=== PATIENT | female | born 1990 | race African-American/Black ===

== ENCOUNTER 2016-10-14 01:22 | Inpatient (IN) | payer MEDICAID ==
[2016-10-14] VITALS (39 sets, daily range): BP systolic 122–182; RESP 16–35; TEMP 97.4–98.7; Ht 165.1 cm; Wt 153.6 kg
[~2016-10-14] VITALS: Ht 165.1 cm; Wt 153.6 kg
[2016-10-14] MEDS ORDERED: DUONEB INH ONE ×3 (02:32→02:33)
[2016-10-14] MEDS: DUONEB INH SCH ×5 (05:08→22:33)
[2016-10-14] MEDS ORDERED: Flu Vaccine Quadrivalent 60 MCG/0.5 ML IM.VACC ONE (05:25)
[2016-10-14] MEDS ORDERED: KCL CR 10 MEQ CAP PO ONE ×2 (08:30→18:40)
[2016-10-14] MEDS ORDERED: Furosemide 100 MG/10 ML VIAL IV ONE (08:30)
[2016-10-14] MEDS: NEBIVOLOL 2.5 MG TAB PO SCH (10:06)
[2016-10-14] MEDS: CEFTRIAXONE 1 GM in SODIUM CHLORIDE 0.9% 50 ML IV SCH (10:19)
[2016-10-14] MEDS: METHYLPRED SOD SUCC 125 MG/2 ML VIAL IV SCH ×3 (10:19→20:04)
[2016-10-14] MEDS ORDERED: Furosemide 40 MG TAB PO ONE (18:40)
[2016-10-14] MEDS: MONTELUKAST 10 MG TAB PO SCH (20:04)
[2016-10-14] MEDS: ONDANSETRON 4 MG VIAL IV PUSH PRN (20:57)
[2016-10-14] MEDS: ACETAMINOPHEN 325 MG TAB PO PRN (21:04)
[2016-10-15] VITALS (21 sets, daily range): BP systolic 100–156; RESP 18–36; TEMP 97.3–98.8
[2016-10-15] MEDS: DUONEB INH SCH ×6 (02:15→22:20)
[2016-10-15] MEDS ORDERED: Furosemide 40 MG/4 ML VIAL IV ONE (08:40)
[2016-10-15] MEDS: NEBIVOLOL 2.5 MG TAB PO SCH ×2 (09:18→10:04)
[2016-10-15] MEDS: CEFTRIAXONE 1 GM in SODIUM CHLORIDE 0.9% 50 ML IV SCH (09:18)
[2016-10-15] MEDS: METHYLPRED SOD SUCC 125 MG/2 ML VIAL IV SCH ×2 (09:34→20:34)
[2016-10-15] MEDS: ACETAMINOPHEN 325 MG TAB PO PRN (16:49)
[2016-10-15] MEDS: MONTELUKAST 10 MG TAB PO SCH (20:34)
[2016-10-16] VITALS (10 sets, daily range): BP systolic 116–147; RESP 18–25; TEMP 97.3–98.3
[2016-10-16] MEDS: DUONEB INH SCH ×4 (02:34→14:26)
[2016-10-16] MEDS ORDERED: SALINE FLUSH 10 ML FLUSH PRN (07:55)
[2016-10-16] MEDS: NEBIVOLOL 2.5 MG TAB PO SCH (09:40)
[2016-10-16] MEDS: CEFTRIAXONE 1 GM in SODIUM CHLORIDE 0.9% 50 ML IV SCH (09:40)
[2016-10-16] MEDS: METHYLPRED SOD SUCC 125 MG/2 ML VIAL IV SCH ×2 (09:41→20:29)
[2016-10-16] MEDS: SALINE FLUSH 10 ML FLUSH SCH ×2 (09:41→20:29)
[2016-10-16] MEDS: ACETAMINOPHEN 325 MG TAB PO PRN (16:28)
[2016-10-16] MEDS ORDERED: MAG HYDROX 30 ML UDC PO PRN (17:30)
[2016-10-16] MEDS: NEB-BROVANA 15 MCG/2 ML INH SCH (17:51)
[2016-10-16] MEDS: NEB-XOPENEX 0.63 MG/3 ML INH SCH ×2 (17:51→23:48)
[2016-10-16] MEDS: NEB-BUDESONIDE 0.5 MG INH SCH (17:51)
[2016-10-16] MEDS: MONTELUKAST 10 MG TAB PO SCH (20:28)
[2016-10-16] MEDS: THEOPHYLLINE SR 200 MG CAP PO SCH (20:28)
[2016-10-17] VITALS (9 sets, daily range): BP systolic 122–142; RESP 20–30; TEMP 97.4–98.2
[2016-10-17] MEDS: NEB-XOPENEX 0.63 MG/3 ML INH SCH ×6 (03:22→22:17)
[2016-10-17] MEDS: SODIUM CHLORIDE 0.9% FLUSH BAG 500 ML IV SCH (06:43)
[2016-10-17] MEDS: NEB-BUDESONIDE 0.5 MG INH SCH ×2 (07:28→18:21)
[2016-10-17] MEDS: NEB-BROVANA 15 MCG/2 ML INH SCH ×2 (07:28→18:21)
[2016-10-17] MEDS: METHYLPRED SOD SUCC 125 MG/2 ML VIAL IV SCH ×2 (09:13→22:58)
[2016-10-17] MEDS: THEOPHYLLINE SR 200 MG CAP PO SCH ×2 (09:13→22:54)
[2016-10-17] MEDS: SALINE FLUSH 10 ML FLUSH SCH ×2 (09:13→20:00)
[2016-10-17] MEDS: NEBIVOLOL 2.5 MG TAB PO SCH (09:13)
[2016-10-17] MEDS: CEFTRIAXONE 1 GM in SODIUM CHLORIDE 0.9% 50 ML IV SCH (09:14)
[2016-10-17] MEDS ORDERED: ALU/MAG/SIM 30 ML UDC PO PRN (09:35)
[2016-10-17] MEDS: DUONEB INH SCH ×2 (10:30→10:59)
[2016-10-17] MEDS: GUAIFENESIN ER 600 MG TABCR PO SCH ×2 (10:55→22:54)
[2016-10-17] MEDS: MONTELUKAST 10 MG TAB PO SCH (22:53)
[2016-10-18] VITALS (8 sets, daily range): BP systolic 140–156; RESP 18–26; TEMP 97.2–98.4
[2016-10-18] MEDS: ACETAMINOPHEN 325 MG TAB PO PRN (01:09)
[2016-10-18] MEDS: NEB-XOPENEX 0.63 MG/3 ML INH SCH ×6 (02:54→22:20)
[2016-10-18] MEDS: SODIUM CHLORIDE 0.9% FLUSH BAG 500 ML IV SCH (06:08)
[2016-10-18] MEDS: MODAFINIL 100 MG TAB PO SCH ×2 (06:09→12:18)
[2016-10-18] MEDS: NEB-BROVANA 15 MCG/2 ML INH SCH ×2 (07:15→19:31)
[2016-10-18] MEDS: NEB-BUDESONIDE 0.5 MG INH SCH ×2 (07:15→19:31)
[2016-10-18] MEDS: SALINE FLUSH 10 ML FLUSH SCH ×2 (08:17→20:48)
[2016-10-18] MEDS: CEFTRIAXONE 1 GM in SODIUM CHLORIDE 0.9% 50 ML IV SCH (08:17)
[2016-10-18] MEDS: METHYLPRED SOD SUCC 125 MG/2 ML VIAL IV SCH ×2 (08:17→20:46)
[2016-10-18] MEDS: NEBIVOLOL 2.5 MG TAB PO SCH (08:18)
[2016-10-18] MEDS: THEOPHYLLINE SR 200 MG CAP PO SCH ×2 (08:18→20:44)
[2016-10-18] MEDS: GUAIFENESIN ER 600 MG TABCR PO SCH ×2 (08:18→20:44)
[2016-10-18] MEDS: ALPRAZOLAM 0.25 MG TAB PO PRN (20:44)
[2016-10-18] MEDS: MONTELUKAST 10 MG TAB PO SCH (20:44)
[2016-10-18] MEDS: ONDANSETRON 4 MG VIAL IV PUSH PRN (20:46)
[2016-10-19] VITALS (8 sets, daily range): BP systolic 128–160; RESP 20–26; TEMP 97.8–98.6
[2016-10-19] MEDS: NEB-XOPENEX 0.63 MG/3 ML INH SCH ×6 (02:35→22:26)
[2016-10-19] MEDS: MODAFINIL 100 MG TAB PO SCH ×2 (04:56→12:25)
[2016-10-19] MEDS: SODIUM CHLORIDE 0.9% FLUSH BAG 500 ML IV SCH (04:56)
[2016-10-19] MEDS: ALPRAZOLAM 0.25 MG TAB PO PRN ×2 (06:55→19:35)
[2016-10-19] MEDS: ACETAMINOPHEN 325 MG TAB PO PRN (06:56)
[2016-10-19] MEDS: NEB-BROVANA 15 MCG/2 ML INH SCH ×2 (07:20→19:15)
[2016-10-19] MEDS: NEB-BUDESONIDE 0.5 MG INH SCH ×2 (07:20→19:15)
[2016-10-19] MEDS: CEFTRIAXONE 1 GM in SODIUM CHLORIDE 0.9% 50 ML IV SCH (09:14)
[2016-10-19] MEDS: PREDNISONE 50 MG TAB PO SCH (09:15)
[2016-10-19] MEDS: NEBIVOLOL 2.5 MG TAB PO SCH (09:15)
[2016-10-19] MEDS: GUAIFENESIN ER 600 MG TABCR PO SCH ×2 (09:15→19:35)
[2016-10-19] MEDS: THEOPHYLLINE SR 200 MG CAP PO SCH ×2 (09:15→19:35)
[2016-10-19] MEDS: SALINE FLUSH 10 ML FLUSH SCH ×2 (09:15→19:36)
[2016-10-19] MEDS: ONDANSETRON 4 MG VIAL IV PUSH PRN (15:10)
[2016-10-19] MEDS: MONTELUKAST 10 MG TAB PO SCH (19:35)
[2016-10-20 00:08] VITALS: RESP 22
[2016-10-20] MEDS: NEB-XOPENEX 0.63 MG/3 ML INH SCH ×3 (02:42→11:00)
[2016-10-20] MEDS: SODIUM CHLORIDE 0.9% FLUSH BAG 500 ML IV SCH (03:34)
[2016-10-20 04:08] VITALS: BP_SYST 112; RESP 20; TEMP 98
[2016-10-20] MEDS: MODAFINIL 100 MG TAB PO SCH ×2 (06:00→12:00)
[2016-10-20 07:11] VITALS: BP_SYST 129; RESP 20; TEMP 97.3
[2016-10-20] MEDS: NEB-BROVANA 15 MCG/2 ML INH SCH (07:22)
[2016-10-20] MEDS: NEB-BUDESONIDE 0.5 MG INH SCH (07:22)
[2016-10-20] MEDS: ACETAMINOPHEN 325 MG TAB PO PRN (07:48)
[2016-10-20] MEDS: GUAIFENESIN ER 600 MG TABCR PO SCH (07:52)
[2016-10-20] MEDS: THEOPHYLLINE SR 200 MG CAP PO SCH (07:52)
[2016-10-20] MEDS: NEBIVOLOL 2.5 MG TAB PO SCH (07:52)
[2016-10-20] MEDS: PREDNISONE 50 MG TAB PO SCH (07:52)
[2016-10-20] MEDS: SALINE FLUSH 10 ML FLUSH SCH (07:53)
[2016-10-20] MEDS: CEFTRIAXONE 1 GM in SODIUM CHLORIDE 0.9% 50 ML IV SCH (07:58)
[2016-10-20 10:54] VITALS: BP_SYST 140; RESP 20; TEMP 97.8
[2016-10-20 10:56] VITALS: BP_SYST 140; RESP 20; TEMP 97.8
[2016-10-20 11:04] VITALS: BP_SYST 140; RESP 20; TEMP 97.8
== END 2016-10-20 14:47 | disposition home or self-care (01) | DRG 189 ==
LOC: ENRESERVDT → ENRESERV → ENRESERVTM → ER 01:22 → ENPENDDIS 03:26 → EMR 03:26 → ICU 04:29 → 4NT 10-15 11:42
PROVIDERS: ADMIT Internal Medicine Nephrology; ATTEND Internal Medicine Nephrology
DX: J96.22 Acute and chronic respiratory failure with hypercapnia (principal); I11.0 Hypertensive heart disease with heart failure; J44.1 Chronic obstructive pulmonary disease with (acute) exacerbation; Z68.43 Body mass index [BMI] 50.0-59.9, adult; J45.901 Unspecified asthma with (acute) exacerbation; I50.30 Unspecified diastolic (congestive) heart failure; E66.01 Morbid (severe) obesity due to excess calories; R00.0 Tachycardia, unspecified; Z72.0 Tobacco use
CPT/HCPCS: 36415; 36600; 71010; 80048; 80051; 80053; 82330; 82553; 82803; 83880; 84484; 84703; 85025; 93005; 94640; 94660; 94799